=== PATIENT | female | born 1955 | race Caucasian/White ===

== ENCOUNTER 2017-10-07 10:27 | Observation (INO) ==
[2017-10-07] MEDS ORDERED: ONDANSETRON 4 MG/2 ML INJECTION IVP ONE (10:46)
[2017-10-07] MEDS ORDERED: NS 1,000 ML IV ONE (10:46)
[2017-10-07] MEDS ORDERED: SALINE FLUSH 10ml SYRINGE IVF PRN (10:46)
--- OUTSIDE RECORDS SUMMARY | 2017-10-07 10:56 | External Medical Summary | Referral Summary ---
:1955 Author Organization [facility] [place] Address [address] [place] [address] Care Team Providers Name Role Phone No PCP, Pt States Primary Care Physician Encounter VC Date(s): 10/11/16 - 10/12/16 [facility] [place] [address] [place] [address] Discharge Diagnosis: Heart palpitations Discharge Disposition: 01-Home or Self Care Attending Physician: Jere Mirza MD Admitting Physician: Jere Mirza MD Vital Signs Most recent to oldest [Reference Range]: 1 Temperature Oral [35.8-37.3 degC] 36.5 degC (10/11/16 10:07 PM) Peripheral Pulse Rate [60-100 bpm] 63 bpm (10/12/16 4:15 AM) Heart Rate Monitored [60-100 bpm] 88 bpm (10/12/16 3:30 AM) Respiratory Rate [14-20 br/min] 13 br/min *LOW* (10/12/16 4:15 AM) Blood Pressure [90-140/60-90 mmHg] 164/89 mmHg *HI* (10/12/16 3:30 AM) Mean Arterial Pressure, Cuff 105 mmHg (10/12/16 3:30 AM) SpO2 98 % (10/12/16 4:15 AM) Problem List Condition Effective Dates Status Health Status Informant Acute pain(Confirmed) Active Anemia(Confirmed) 2009 Active Arthritis(Confirmed) Active patient Chronic sinusitis(Confirmed) Active Depression(Confirmed) Active Gastric ulcerations(Confirmed) Active Hypertension(Confirmed) Active Morbid obesity(Confirmed) Active patient Ulcer(Confirmed) Active patient Allergies, Adverse Reactions, Alerts Substance Reaction Severity Status diazepam inability to arouse- went to ED Active Medications busPIRone 5 mg oral tablet 5 mg 1 tabs, Oral, TID, # 90 tabs, 0 Refill(s), Indication: anxiety, Pharmacy: [facility] on , 1 tabs Oral TID Start Date: 10/07/16 Status: OrderedCymbalta 60 mg oral delayed release capsule 60 mg 1 caps, Oral, Daily, do not crush or chew, # 30 caps, 0 Refill(s), Indication: depression, Pharmacy: [facility] on , 1 caps Oral Daily, Instr:do not crush or chew Start Date: 10/07/16 Status: OrderedNorvasc 10 mg oral tablet 10 mg 1 tabs, Oral, Daily, # 30 tabs, 0 Refill(s), Indication: HTN, Pharmacy: [facility] on , 1 tabs Oral Daily Start Date: 10/07/16 Status: OrderedtraZODone 150 mg oral tablet 150 mg 1 tabs, Oral, Bedtime (once a day), # 30 tabs, 0 Refill(s), Indication: insomnia, Pharmacy: [facility] on , 1 tabs Oral Bedtime (once a day) Start Date: 10/07/16 Status: Ordered Results Hematology Most recent to oldest [Reference Range]: 1 WBC [4.8-10.8 10*3/uL] 5.8 10*3/uL (10/12/16 1:39 AM) RBC [4.00-5.20] 4.73 (10/12/16 1:39 AM) Hgb [12.0-16.0 gm/dL] 13.3 gm/dL (10/12/16 1:39 AM) Hct [37.0-47.0 %] 41.3 % (10/12/16 1:39 AM) MCV [82.0-99.0 fL] 87.3 fL (10/12/16 1:39 AM) MCH [27.0-32.0 pg] 28.1 pg (10/12/16 1:39 AM) MCHC [32.0-36.0 gm/dL] 32.2 gm/dL (10/12/16 1:39 AM) RDW [11.5-14.5 %] 14.2 % (10/12/16 1:39 AM) Platelet [150-400 10*3/uL] 231 10*3/uL (10/12/16 1:39 AM) MPV [9.4-12.4 fL] 10.4 fL (10/12/16 1:39 AM) Immature Granulocytes [0.0-1.0 %] 0.3 % (10/12/16 1:39 AM) Neutrophils [51-75 %] 62 % (10/12/16 1:39 AM) Lymphocytes [20-46 %] 29 % (10/12/16 1:39 AM) Monocytes [4-11 %] 6 % (10/12/16 1:39 AM) Eosinophils [0-4 %] 4 % (10/12/16 1:39 AM) Basophils [0-2 %] 0 % (10/12/16 1:39 AM) Neutro Absolute [1.90-7.00] 3.55 (10/12/16 1:39 AM) Lymph Absolute [0.80-3.30] 1.65 (10/12/16 1:39 AM) [place] Absolute [0.30-1.00] 0.32 (10/12/16 1:39 AM) Eos Absolute [0.00-0.50] 0.22 (10/12/16 1:39 AM) Baso Absolute [0.00-0.20] 0.01 (10/12/16 1:39 AM) Nucleated RBC Automated [0 /100 WBC] 0.0 /100 WBC (10/12/16 1:39 AM) Differential Scanned Slide (10/12/16 1:39 AM) Chemistry Most recent to oldest [Reference Range]: 1 Sodium Lvl [136-144 mEq/L] 137 mEq/L (10/12/16 2:40 AM) Potassium Lvl [3.6-5.1 mEq/L] 3.2 mEq/L *LOW* (10/12/16 2:40 AM) Chloride [99-109 mEq/L] 104 mEq/L (10/12/16 2:40 AM) CO2 [22-32 mEq/L] 26 mEq/L (10/12/16 2:40 AM) AGAP [3-20 mEq/L] 7 mEq/L (10/12/16 2:40 AM) BUN [4-20 mg/dL] 22 mg/dL *HI* (10/12/16 2:40 AM) Glucose Lvl [70-100 mg/dL] 105 mg/dL *HI* (10/12/16 2:40 AM) Creatinine Lvl [0.44-1.03 mg/dL] 0.78 mg/dL (10/12/16 2:40 AM) eGFR [>60 mL/min] >60 mL/min 1 (10/12/16 2:40 AM) Calcium Lvl [8.6-10.0 mg/dL] 9.0 mg/dL (10/12/16 2:40 AM) Albumin Lvl [3.5-4.8 gm/dL] 3.8 gm/dL (10/12/16 2:40 AM) Total Protein [6.1-7.9 gm/dL] 6.4 gm/dL (10/12/16 2:40 AM) Globulin [1.9-4.3 gm/dL] 2.6 gm/dL (10/12/16 2:40 AM) ALT [14-54 U/L] 21 U/L (10/12/16 2:40 AM) AST [15-41 U/L] 19 U/L (10/12/16 2:40 AM) Alk Phos [26-104 U/L] 67 U/L (10/12/16 2:40 AM) Bili Total [0.2-1.2 mg/dL] 0.9 mg/dL 2 (10/12/16 2:40 AM) Troponin [<0.06 ng/mL] <0.05 ng/mL (10/12/16 1:39 AM) 1Result Comment: Multiply eGFR results by 1.21 for race.2Result Comment: Naproxen, specifically the metabolite O-desmethylnaproxen, may cause spurious elevation in Total Bilirubin levels. Immunizations No data available for this section Procedures Procedure Date Related Diagnosis Body Site History of knee surgery1 2000 Cholecystectomy 1995 Appendectomy 1991 1Right Knee Social History Social History Type Response Smoking Status Never smoker Assessment and Plan No data available for this section
--- OUTSIDE RECORDS SUMMARY | 2017-10-07 10:56 | External Medical Summary | Referral Summary ---
:[address] [facility] Address [address] [place] [address] Care Team Providers Name Role Phone Balta Garcia Primary Care Physician Encounter VC Date(s): 12/06/16 - 12/06/[address] [facility] [address] [place] [address] [place] Discharge Diagnosis: Orthopnea Discharge Diagnosis: HTN (hypertension) Discharge Diagnosis: Leg edema Discharge Diagnosis: Chest pain Discharge Disposition: 01-Home or Self Care Attending Physician: Radha Bullock DO Admitting Physician: Balta Garcia DO Vital Signs Most recent to oldest [Reference Range]: 1 Temperature Oral [35.8-37.3 degC] 36.2 degC (12/06/16 3:29 PM) Peripheral Pulse Rate [60-100 bpm] 68 bpm (12/06/16 3:29 PM) Respiratory Rate [14-20 br/min] 24 br/min *HI* (12/06/16 3:29 PM) Blood Pressure [90-140/60-90 mmHg] 190/108 mmHg *HI* (12/06/16 3:29 PM) Problem List Condition Effective Dates Status Health [...] 90 tabs, 0 Refill(s), Indication: anxiety, Pharmacy: [facility] on , 1 tabs Oral TID Start Date: 10/07/16 Status: OrderedCymbalta 60 mg oral delayed release capsule 60 mg 1 caps, Oral, Daily, do not crush or chew, # 30 caps, 0 Refill(s), Indication: depression, Pharmacy: [facility] on , 1 caps Oral Daily, Instr:do not crush or chew Start Date: 10/07/16 Status: OrderedNorvasc 10 mg oral tablet 10 mg 1 tabs, Oral, Daily, # 30 tabs, 0 Refill(s), Indication: HTN, Pharmacy: [facility] on , 1 tabs Oral Daily Start Date: 10/07/16 Status: OrderedtraZODone 150 mg oral tablet 150 mg 1 tabs, Oral, Bedtime (once a day), # 30 tabs, 0 Refill(s), Indication: insomnia, Pharmacy: [facility] on , 1 tabs Oral Bedtime (once a day) Start Date: 10/07/16 Status: Ordered Results Chemistry Most recent to oldest [Reference Range]: 1 Sodium Lvl [135-144 mEq/L] 145 mEq/L *HI* (12/06/16 4:38 PM) Potassium Lvl [3.5-5.2 mEq/L] 3.9 mEq/L (12/06/16 4:38 PM) Chloride [99-111 mEq/L] 109 mEq/L (12/06/16 4:38 PM) CO2 [22-31 mEq/L] 26 mEq/L (12/06/16 4:38 PM) AGAP [3-20 mEq/L] 10 mEq/L (12/06/16 4:38 PM) BUN [10-20 mg/dL] 15 mg/dL (12/06/16 4:38 PM) Glucose Lvl [70-99 mg/dL] 84 mg/dL (12/06/16 4:38 PM) Creatinine Lvl [0.57-1.11 mg/dL] 0.94 mg/dL (12/06/16 4:38 PM) eGFR [>60 mL/min] >60 mL/min 1 (12/06/16 4:38 PM) Calcium Lvl [8.4-10.2 mg/dL] 9.4 mg/dL (12/06/16 4:38 PM) 1Result Comment: Multiply eGFR results by 1.21 for race. Procedures Procedure Date Related Diagnosis Body Site History of knee surgery1 2000 Cholecystectomy 1995 Appendectomy 1991 1Right Knee Social History Social History Type Response Smoking Status Never smoker
--- OUTSIDE RECORDS SUMMARY | 2017-10-07 10:56 | External Medical Summary ---
:1955 Author Organization [employer] Care Team Providers Name Role Phone Khanh Mercado Provider Role Unavailable Allergies No Known Allergies Problems No Known Problems Medications No Known Medications Results No Known Results Summary Purpose [employer] Submission
--- NOTE | 2017-10-07 11:25 | Emergency Department Report ---
Overdose HPI - General Chief Complaint: Overdose Stated Complaint: OVERDOSE Time Seen by Provider: 10/07/17 10:46 Source: patient, RN notes reviewed, old records reviewed Mode of arrival: ambulatory Limitations: no limitations - History of Present Illness HPI Narrative: 62yo woman is presented to the ER by [facility] for evaluation of an intentional drug overdose. Pt has an extensive psychiatric hx, including numerous prior suicide attempts. Today, pt took 6-7 capsules of 30mg duloxetine ; pt was not prescribed this medication - the capsules belonged to her daughter. Unclear why pt was transported to [facility] today, rather than [facility] or [facility] (where pt has previously been admitted). MD complaint: intentional overdose Onset (ago): hour(s) Timing confirmed by: family member Intent: suicide attempt Associated symptoms: depression Treatments Prior to Arrival: none - Related Data Home Medications Medication Instructions Recorded Confirmed Ibuprofen 800 mg PO PRN 10/07/17 10/07/17 Allergies Allergy/AdvReac Type Severity Reaction Status Date / Time diazepam [From Valium] Allergy Intermediate Sleepiness Verified 10/07/17 10:49 sertraline [From Zoloft] Allergy Intermediate Behavior Verified 10/07/17 10:49 Disturbance Review of Systems Psychiatric: Reports: as per HPI, depression, suicidal thoughts. Denies: anxiety, homicidal thoughts, auditory hallucinations, visual hallucinations [facility] Patient Stated Medical History Hypertension Yes: pt ran out of meds a long time ago Hx Incontinence Yes Depression Yes - Social History Smoking status: Never smoker Physical Exam - Limitations Limitations: no limitations - General General appearance: alert, in no apparent distress, obese (Morbid), other (Pt is unkempt, has urinated on self, has not bathed/cleaned herself in some time) - Normal Exams: Head:: Normocephalic without trauma Eyes:: Pupils are PERRLA w/ EOMI, No scleral icterus, irritation, or foreign bodies noted ENMT:: No facial trauma, nasal exudates, pharyngeal erythema, or exudates are noted Neck:: Full range of motion, without adenopathy Chest/Respirations:: Clear all schaffer, with good airflow, and symmetry bilaterally Cardiovascular:: Regular rate and rhythm, without murmur or gallop, Pulses 2+ all extremities, capillary refill, <2 seconds all extremities Abdomen:: Bowel sounds positive, soft, non-tender, non-distended Lymphatic:: No lymphadenopathy Musculoskeletal:: No tenderness, or deformity noted Integumentary:: No rashes, hives, or bruising noted Neurological:: Patient is alert, and oriented - Psychiatric Psychiatric exam: Present: flat affect, suicidal ideation Course - Consultations Consultation #1: Poison control: Anticipate somnolence, tachycardia, N/V, diaphoresis, confusion , etc. Possible concern for serotonin syndrome, but less likely with one-time ingestion. Supportive care. Watch temp and VSS and mental status. Routine OD work up. If pt is symptomatic, perform serial EKGs. Agitation/restlessness can be controlled with benzos. Observe for 6-12 or until resolution of sx. Time: 11:25 Consultation #2: Hospitalist: Will admit to obs for symptomatic care and observation. Will place in CCU for suicide watch. Time: 13:00 Vital Signs Temperature 97.8 F 10/07/17 10:27 Pulse Rate 78 10/07/17 10:27 Respiratory Rate 24 10/07/17 10:27 Blood Pressure 229/110 H 10/07/17 10:27 Pulse Oximetry 95 10/07/17 10:27 Temperature 97.8 F 10/07/17 10:27 Pulse Rate 78 10/07/17 10:27 Respiratory Rate 24 10/07/17 10:27 Blood Pressure 229/110 H 10/07/17 10:27 Pulse Oximetry 95 10/07/17 10:27 Overdose - MDM Narrative Medical decision making narrative: Pt with intentional overdose of duloxetine. Dosing is not overwhelming, but will need to be observed for 6-12hrs prior to contacting psych for eval/ placement. Hospitalist will admit for observation. - Differential Diagnosis Likely: suicide attempt by multiple drug overdose, poisoning by opiate or related narcotic, drug overdose, acetaminophen overdose - Medical Records Attestation: I reviewed the patient's medical records. - Lab Data Attestation: I reviewed the patient's lab results. Result diagrams: 10/07/17 12:03 10/07/17 12:03 - Radiology Data Attestation: I reviewed the patient's radiology results. CXR: Stable chest. No acute CT pathology. - EKG Data EKG #1 EKG attestation: Yes: I reviewed and interpreted this EKG. EKG shows normal: sinus rhythm, intervals, ST-T waves Lafferty/QRS: left axis deviation Voltage: c/w LVH Disposition Clinical Impression: Suicidal ideation Drug overdose Qualifiers: Encounter type: initial encounter Injury intent: intentional self-harm Qualified Code(s): T50.902A - Poisoning by unspecified drugs, medicaments and biological substances, intentional self-harm, initial encounter Disposition: 02 To OBS [facility] Condition: Stable Time of Disposition: 13:02 - Seen By: physician
[2017-10-07] MEDS ORDERED: LABETALOL 100mg/20ml INJECTION IVP ONE (11:35)
--- NOTE | 2017-10-07 14:09 | History & Physical Report ---
History of Present Illness Date: 10/07/17 Chief complaint: "More suicidal than normal" HPI: Caridad Sunshine is a 62 y/o woman with a hx of depression and multiple prior suicide attempts via overdosing. She was admitted to [facility] in Feb, 2017 for the same reason. She hasn't been able to f/u with psych at [place] and has not been on any antidepressants since then. She states that she always feels suicidal but today when she woke up she felt more suicidal than usual. She denies any recent triggers, though states that her chronic OA pain in her legs, having an unreliable car that breaks down, inability to f/u with providers b/c of transportation challenges have all contributed to her underlying depression. She took about 6 or 7 of her daughter's Cymbalta 30 mg tabs, in an attempt to end her life. She was transported to [facility] ED. VS and labs were stable; she had mild hypokalemia with K of 3.4. She was admitted to the CCU for suicide watch and psych consultation. Review of Systems All systems PM: 10-point ROS was reviewed, no additional remarkable complaints except - Constitutional Constitutional: Absent: chills, fever(s), headache(s) - EENMT Eyes: Absent: change in vision Nose: Absent: allergies Mouth/Throat: Absent: sore throat - Cardiovascular Cardiovascular: Present: chest pain (with anxiety - none recently), edema (both legs - her physician has been planning on getting an echo but she hasn't been able to get it scheduled yet) - Respiratory Respiratory: Absent: cough, dyspnea - Gastrointestinal Gastrointestinal: Present: dyspepsia, other (occasionally has pain from an ulcer ). Absent: abdominal pain, constipation, diarrhea, nausea, vomiting - Genitourinary Genitourinary: Present: urinary incontinence. Absent: dysuria, hematuria - Musculoskeletal Musculoskeletal: Present: other (B/L lower extremity joint pain) - Integumentary/Breasts Integumentary: Absent: rash, wounds - Neurological Neurological: Present: abnormal gait (uses a cane and limited by pain). Absent : confusion, dizziness, frequent falls (did roll out of bed a while ago), headache(s), weakness - Psychiatric Psychiatric: Present: anxiety, depression, suicidal ideation - Endocrine Endocrine: Absent: palpitations - Hematologic/Lymphatic Hematologic/Lymphatic: Absent: easy bleeding, easy bruising - Allergic/Immunologic Allergic/Immunologic: Absent: seasonal rhinorrhea Past Medical History Medical History Updates: OA. Depression. HTN. Ulcer. Morbid obesity Surgical History: Cholecystectomy. Appendectomy. Knee arthroscopy Family History Updates: Depression Family History: As Above - Social History Smoking status: Never smoker Substance use type: does not use Alcohol intake frequency: does not drink Medications Home Medications Medication Instructions Recorded Confirmed Type Ibuprofen 800 mg PO PRN 10/07/17 10/07/17 History Allergies Allergy/AdvReac Type Severity Reaction Status Date / Time diazepam [From Valium] Allergy Intermediate Sleepiness Verified 10/07/17 10:49 sertraline [From Zoloft] Allergy Intermediate Behavior Verified 10/07/17 10:49 Disturbance Exam Vital Signs: Temperature 97.8 F 10/07/17 10:27 Pulse Rate 78 10/07/17 10:27 Respiratory Rate 24 10/07/17 10:27 Blood Pressure 160/84 H 10/07/17 12:00 Pulse Oximetry 95 10/07/17 10:27 Telemetry Rhythm: Sinus Rhythm - Constitutional Present: no acute distress, well nourished, well developed, morbidly obese, disheveled - Routine HEENT Exam Head: Present: normocephalic Eye: Present: PERRL. Absent: conjunctival icterus, scleral injection ENT: Present: mucous membranes moist - Routine Neck Exam Present: supple - Routine Respiratory Exam Present: CTA bilaterally - Routine Cardiovascular Exam Present: RRR, S1, S2 - Routine Abdominal Exam Present: soft, normoactive bowel sounds, non distended, non tender - Routine Extremities Exam Present: edema (1+ BLE) - Routine Skin Exam Present: intact, dry, warm - Routine Neurological Exam Present: alert, oriented X3, CN II-XII intact, moving all extremities, vision grossly intact, hearing grossly intact, normal speech. Absent: motor deficit, facial asymmetry - Routine Psychiatric Exam Present: suicidal ideation, cooperative, depressed Results - Labs CBC & Chem 7: 10/07/17 12:03 10/07/17 12:03 Assessment and Plan (1) Drug overdose Current visit: Yes Status: Acute Assessment and Plan: ASSESSMENT Suicide attempt via ingestion of Cymbalta Hypokalemia, POA Depression HTN - untreated Ulcer Morbid obesity BMI >60 PLAN Admit, observation status to CCU for suicide precautions. Monitor for somnolence , tachycardia, N/V, diaphoresis, confusion; monitor tele. Consult Dr. Suazo. Ativan PRN anxiety. KDur ordered for mild hypokalemia. Untreated HTN - received labetalol in ED. Consider initiating antiHTN vs. f/u with PCP. She reports that her PCP has requested echo but Caridad has not been able to have this scheduled yet. Start Lisinopril 5 mg. UA pending. Consult SW regarding social needs. D/W CCU RN & with Dr. Elliott. DVT Prophylaxis: SCD's Resuscitation Status: Full Code - Physician Narrative Physician: Luiza Elliott MD Narrative: Date: 10/07/17 Time: 1649 I have independently evaluated and examined this patient. 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 We discussed and formulated the assessment and plan as above with additions as below: Mrs. Sunshine is a 62-year-old female with long history of depression which worsened significantly last year after she was evicted from her home. She was hospitalized. [facility] last year after suicide attempt with intentional overdoses. Initial hospitalization was in September when she took < 10 tablets of losartan; she was readmitted in February after taking 5 tablets of Cymbalta. In February she was discharged on bupropion 300 mg daily, BuSpar 10 mg 3 times a day, duloxetine 60 mg daily, trazodone 200 mg at bedtime, in addition to her pain 10 mg daily, furosemide 20 mg daily, and KCl 10 mEq on MWF. She was [facility] [place] the patient reports that transportation problems have included that happening. She describes chronic depression which has worsened progressively; she feel she is a burden to her daughter and reports that she simply couldn't take it anymore and "why live". She reports decreased interest in any activities , isolating herself, and decreased appetite recently. She took approximately 6- 30 mg tablets of Cymbalta today before presenting to the emergency room. [facility] records reviewed; family history also positive for malignancies including maternal grandmother with breast cancer, fathe colon cancer, and a sibling with lung cancer. NAD, flat affect, monotone voice Respirations nonlabored, decreased airflow, anterior breath sounds clear Abdomen soft, nontender +3 edema bilateral lower extremities Assessment noted; chest x-ray reviewed by myself-NAD. EKG also reviewed by myself demonstrating sinus rhythm, probable LVH, and probable precordial lead inversion. Blood pressure was improving at the time of my assessment; continue to monitor. Exam raises question of possible sleep apnea-patient reports she's never been evaluated for sleep apnea or obesity hypoventilation syndrome. Oxygenation will be monitored overnight. Psychiatric evaluation in a.m. anticipated. Patient plans follow-up with Dr. Cain in [place] following hospitalization. Hospital Course Summary Disclaimer: The visit summary below is not to be considered part of the above Progress Note. Hospital Course: 10/07 Admit, observation status to CCU for suicide precautions. Monitor for somnolence , tachycardia, N/V, diaphoresis, confusion; monitor tele. Consult Dr. Suazo. Ativan PRN anxiety. Consult SW regarding social needs. KDur ordered for mild hypokalemia. UA pending. Untreated HTN - received labetalol in ED. Consider initiating antiHTN vs. f/u with PCP. She reports that her PCP has requested echo but Caridad has not been able to have this scheduled yet. Start Lisinopril 5 mg.
[2017-10-07 14:23] VITALS: BMI 60.7
[2017-10-07] MEDS ORDERED: SENNOSIDES 8.6 MG TABLET PO PRN (14:32)
[2017-10-07] MEDS ORDERED: ONDANSETRON 4 MG/2 ML INJECTION IVP PRN (14:32)
[2017-10-07] MEDS ORDERED: SENNA + DOCUSATE TABLET PO PRN (14:32)
[2017-10-07] MEDS: ACETAMINOPHEN 325 MG TABLET PO PRN (15:15)
[2017-10-07] MEDS: LISINOPRIL 5 MG TABLET PO SCH (15:16)
[2017-10-07] MEDS: PRAMIPEXOLE 0.25 MG TABLET PO SCH (21:34)
[2017-10-07] MEDS: ENOXAPARIN 30 MG/0.3 ML INJECTION SQ SCH (21:34)
[2017-10-08] MEDS: ACETAMINOPHEN 325 MG TABLET PO PRN ×4 (03:03→20:20)
[2017-10-08] MEDS: ENOXAPARIN 30 MG/0.3 ML INJECTION SQ SCH ×2 (08:51→20:27)
[2017-10-08] MEDS: LISINOPRIL 5 MG TABLET PO SCH (08:51)
--- NOTE | 2017-10-08 10:34 | XRay Report ---
Indication: OD PROCEDURE: XR chest 1V: Encounter: Initial Comparison: July 06, 2017 Findings: The lungs are stable in appearance without new focal airspace consolidation. There is no pleural effusion or pneumothorax. The heart size, pulmonary vascularity and mediastinal contours are unchanged. IMPRESSION: Stable appearance of the chest without acute cardiopulmonary disease. .
[2017-10-08] MEDS ORDERED: LISINOPRIL 5 MG TABLET PO ONE (13:22)
--- NOTE | 2017-10-08 13:27 | Progress Note ---
- Date 10/08/17 Subjective: Mrs. Sunshine reports having significant anxiety overnight and that her legs are jumpy and painful which is a chronic problem. Leg symptoms improved after a dose of Mirapex with nursing describe restless leg symptoms. The patient reports that she continues to feel very depressed and that life isn't worth living. She reports that she would consider taking pills again but also suggests that she told her daughter she wouldn't. She ate breakfast only because she told her daughter she would. She denies nausea or vomiting, has no heartburn, and denies dysuria or urinary frequency. She complains of some chronic back pain. Overnight nursing reported intermittent desaturations with O2 dropping to 83% associated with episodes of apnea. Objective Vital signs: Temperature 97.5 F 10/08/17 08:00 Pulse Rate 60 10/08/17 12:00 Respiratory Rate 15 10/08/17 10:00 Blood Pressure 158/77 H 10/08/17 10:00 Pulse Oximetry 97 10/08/17 12:05 NAD, alert, flat affect Responds to questions appropriately, regards examiner Respirations nonlabored, good airflow, breath sounds clear Regular rhythm, S1-S2 Abdomen soft, obese, nontender, bowel sounds present +2-3 edema bilateral lower extremities Height/Weight/BMI: Height 1.73 m Weight 185 kg Body Mass Index 60.7 Results - Labs CBC & Chem 7: 10/07/17 12:03 10/08/17 04:36 Labs: UA with 5-10 WBC, +4 bacteria, trace leukocyte esterase, positive nitrate Microbiology Results: Microbiology 10/07/17 17:28 Urine, Voided (Cc/notcc) Urine Culture - Preliminary Early growth Assessment and Plan (1) Drug overdose Current visit: Yes Status: Acute Assessment and Plan: ASSESSMENT Intentional overdose Suicide attempt via ingestion of Cymbalta Hypokalemia, POA-resolved Depression (recurrent, major) with anxiety HTN - untreated Ulcer - hx Morbid obesity BMI >60 Asymptomatic pyuria Probable obstructive sleep apnea Restless legs PLAN Patient seen by Dr. Suazo this a.m., to be screened for [facility] and possible transfer there. Continue suicide precautions, protective environment pending psychiatric admission. Hydroxyzine or Ativan PRN anxiety. Potassium improved following supplementation. Blood pressure remains elevated although improved from presentation. Increase lisinopril to 10 mg daily. Nursing observed episodes of apnea overnight with corresponding hypoxia. Overnight oximetry tonight. Discussed potential ANGELICA with patient and treatment options; she is aware that a formal study will be needed for diagnosis as an outpatient before definitive treatment can be initiated. Continue low-dose Mirapex for restless legs. Do not believe treatment is needed for pyuria given absence of symptoms. DVT Prophylaxis: Lovenox Resuscitation Status: Full Code - Physician Narrative Narrative: Date: 10/08/17 Time: 1324 Hospital Course Summary Disclaimer: The visit summary below is not to be considered part of the above Progress Note. Hospital Course: 10/07/17 Admit, observation status to CCU for suicide precautions. Monitor for somnolence , tachycardia, N/V, diaphoresis, confusion; monitor tele. Consult Dr. Suazo. Ativan PRN anxiety. Consult SW regarding social needs. KDur ordered for mild hypokalemia. UA pending. Untreated HTN - received labetalol in ED. Consider initiating antiHTN vs. f/u with PCP. She reports that her PCP has requested echo but Caridad has not been able to have this scheduled yet. Start Lisinopril 5 mg. 10/08/[address] Suazo this a.m., to be screened for [facility] and possible transfer there. Continue suicide precautions, protective environment pending psychiatric admission. Hydroxyzine or Ativan PRN anxiety. Potassium improved following supplementation. Blood pressure remains elevated although improved from presentation. Increase lisinopril to 10 mg daily. Nursing observed episodes of apnea overnight with corresponding hypoxia. Overnight oximetry tonight. Discussed potential ANGELICA with patient and treatment options; she is aware that a formal study will be needed for diagnosis as an outpatient before definitive treatment can be initiated. Continue low-dose Mirapex for restless legs. Do not believe treatment is needed for pyuria given absence of symptoms.
--- NOTE | 2017-10-08 13:31 | Neuropsychiatric Consult ---
[facility] HPI Date: 10/08/17 Requesting Physician: Luiza Elliott Reason for Consultation: OD Start Time: 11:00 Stop Time: 11:30 History of Present Illness: HPI: 62 Y/O CF with a long hx of depression and S/I admitted after OD on approximately 7 Cymbalta 60mg in a SA. On face to face the pt states she has been dealing with numerous stressors. She states she took the OD with intent to kill herself and now wishes she was successful. She continues to report S/I and does not feel safe going home. STRESSORS: Has chronic pain. Poor mobility. Feels lonely and has difficulty leaving the house due to not being able to walk well. Mother 2 years ago. Car is broken and is not able to get to psychiatrist appointments. PSYCH ROS: Pt reports feeling depressed with low interest and motivation, decreased energy, anhedonia, feelings of hopelessness and worthlessness. Has S/ I. Denies anxiety, tamika or psychosis. PAST PSYCH: Has atleast 5 OD attempts and hospitalizations. The first was at age 39. The last was in Feb 2017 at [facility]. She states she has been seen at [facility] in the past and did very well. She states she was most recently on Abilify , Trazodone, and Buspar and feels it worked well although she has been off for some time. SUBSTANCE ABUSE: Denies SOCIAL HX: Denies hx of abuse. Dropped out in 10th grade and has GED. Is on disability for mental illness. Currently lives with daughter RAHEEMH Patient Stated Medical History Hypertension Yes: pt ran out of meds a long time ago Hx Incontinence Yes Other Musculoskeletal Yes: RA Depression Yes Medical History Updates: OA. Depression. HTN. Ulcer. Morbid obesity Surgical History: Cholecystectomy. Appendectomy. Knee arthroscopy Family History: Family History (Last Updated 10/07/17 @ 16:46 by Luiza Elliott MD) Unknown Cancer of lung Maternal Grandmother Cancer of breast Father Cancer of colon Family History Updates: Depression - Social History Smoking status: Never smoker Substance use type: does not use Alcohol intake frequency: does not drink Review of Systems - EENMT Nose: Absent: allergies Mouth/Throat: Absent: sore throat Mental Status Exam Vitals: Last Vital Signs Temp 97.5 F 10/08/17 08:00 Pulse 60 10/08/17 12:00 Resp 15 10/08/17 10:00 BP 158/77 H 10/08/17 10:00 Pulse Ox 97 10/08/17 12:05 Height: 1.73 m Weight: 185 kg - Mental Status Exam Muscle Strength/Tone: Normal Dressing: Casual Grooming: Good Attitude: Cooperative Motor Activity: Retardation Eye Contact: Good Speech: Slowed Volume: Soft Rhythm: Appropriate Rhythm Orientation: Oriented X4 Mood: Depressed Affect: Sad Rate of Thoughts: Appropriate Rate Thought Organization: Organized Associations: Intact Abstract Reasoning: Intact, able to abstract Thought Content: Hopelessness, Worthlessness Perception/Psychotic: Perception Normal Language: Naming Intact Fund of Knowledge: Appropriate Memory: Grossly Intact Suicidal Ideation: Intermittent Homicidal Ideation: None Insight: Poor Judgement: Poor Impulse Control: Poor - Laboratory Result Diagrams: 10/07/17 12:03 10/08/17 04:36 Laboratory Results - last 24 hr 10/07/17 10/08/17 17:28 04:36 Turbidity < 20 Sodium 145 Potassium 4.3 D Chloride 106 Carbon Dioxide 30 Anion Gap 9 BUN 19.0 H Creatinine 0.8 GFR Calculation 73 BUN/Creatinine Ratio 24 Glucose 93 Calculated Osmolality 281 H Calcium 8.2 L D Icterus Index < 2 Specimen Hemolysis 41 H Ur Collection Type Urine, void-cc/notcc Urine Color Yellow Urine Clarity Sl cloudy Urine pH 6.0 Ur Specific [place] 1.025 Urine Protein Negative Urine Glucose (UA) Negative Urine Ketones Negative Urine Occult Blood Negative Urine Nitrate Positive A Urine Bilirubin Negative Urine Urobilinogen 1.0 Ur Leukocyte Esterase Trace A Urine RBC None seen Urine WBC 5-10 H Ur Squamous Epith Cells 5-10 Urine Bacteria 4+ H Ur Culture Indicated? Cult reflexed &setup Assessment and Plan (1) Major depressive disorder with current active episode Qualifiers: Major depression recurrence: recurrent Major depression episode severity: severe Current visit: Yes Status: Acute Continue medical management. Pt will need psych admission when stable. Pt is in agreement with plan. Do not let the pt leave AMA
[2017-10-08] MEDS ORDERED: FALL RISK - PHARMACY CONSULT MC ONE (15:41)
[2017-10-08] MEDS: PRAMIPEXOLE 0.25 MG TABLET PO SCH (20:27)
[2017-10-09] MEDS: ACETAMINOPHEN 325 MG TABLET PO PRN ×3 (01:41→15:15)
[2017-10-09] MEDS ORDERED: TRAMADOL 50 MG TABLET PO PRN (04:15)
[2017-10-09] MEDS ORDERED: HYDRALAZINE 20 MG/ML INJECTION IVP PRN (04:16)
[2017-10-09] MEDS: ENOXAPARIN 30 MG/0.3 ML INJECTION SQ SCH (08:05)
[2017-10-09] MEDS ORDERED: LISINOPRIL 10 MG TABLET PO SCH (09:00)
[2017-10-09] MEDS ORDERED: IBUPROFEN 600 MG TABLET PO PRN (10:47)
--- NOTE | 2017-10-09 13:45 | Discharge Summary ---
Discharge Information Date of admission: 10/07/17 13:02 Anticipated date of discharge: 10/09/17 Attending Physician: Luiza Elliott MD Primary care physician: Jeanine Garcia APRN Consults: Consulting Provider: Jagdish Suazo Reason For Exam: suicide attempt - Discharge Diagnosis (1) Drug overdose Status: Acute Intentional overdose Suicide attempt via ingestion of Cymbalta Hypokalemia, POA-resolved Depression (recurrent, major) with anxiety HTN - untreated Ulcer - hx Morbid obesity BMI >60 Asymptomatic pyuria Probable obstructive sleep apnea Restless leg syndrome - Procedures Procedures: Overnight oximetry on 10/08-10/09: Study was started on 1 L oxygen with subsequent conversion to room air from 11 PM until 0010 a.m. after which she was on 2 L supplemental oxygen due to recurrent desaturation. Oxygen saturation was reported to be < 89% for 41 minutes with lowest saturation recorded 72%. [place]oth pattern was described throughout the night and a total of 65 desaturations were recorded. - Laboratory Labs: On admission CBC and routine chemistries were unremarkable except potassium 3.4. Urine drug screen was negative; salicylates, acetaminophen, and alcohol were undetectable. Urinalysis had 5-10 WBCs, +4 bacteria, trace leukocyte esterase, and positive nitrites 10/08/17 04:36 - Microbiology Microbiology 10/07/17 17:28 Urine, Voided (Cc/notcc) Urine Culture - Preliminary > 100,000 cfu/ml Escherichia coli; sensitivities pending - Radiology Radiology: Chest x-ray on 10/07/17 revealed no acute cardiopulmonary disease. History of Present Illness HPI: Caridad Sunshine is a 62 y/o woman with a hx of depression and multiple prior suicide attempts via overdosing. She was admitted to [facility] in Feb, 2017 for the same reason. She hasn't been able to f/u with psych at [place] and has not been on any antidepressants since then. She states that she always feels suicidal but today when she woke up she felt more suicidal than usual. She denies any recent triggers, though states that her chronic OA pain in her legs, having an unreliable car that breaks down, inability to f/u with providers b/c of transportation challenges have all contributed to her underlying depression. She took about 6 or 7 of her daughter's Cymbalta 30 mg tabs, in an attempt to end her life. She was transported to [facility]. VS and labs were stable; she had mild hypokalemia with K of 3.4. She was admitted to the CCU for suicide watch and psych consultation. Objective Vital signs: Temperature 97.8 F 10/09/17 12:00 Pulse Rate 74 10/09/17 13:15 Respiratory Rate 23 10/09/17 13:15 Blood Pressure 150/71 H 10/09/17 13:00 Pulse Oximetry 94-RA 10/09/17 13:15 NAD, alert Respirations nonlabored, diminished airflow, breath sounds clear anteriorly Regular rhythm, S1-S2 Abdomen soft, obese, nontender +3 edema bilateral lower extremities Rhythm: Normal Sinus Rhythm Height/Weight/BMI: Height 1.73 m Weight 185 kg Body Mass Index 60.7 Hospital Course This is a general summary of the patient's hospital course. For more details refer to the complete medical record. Hospital course: 10/07/17 Admit, observation status to CCU for suicide precautions. Monitor for somnolence , tachycardia, N/V, diaphoresis, confusion; monitor tele. Consult Dr. Suazo. Ativan PRN anxiety. Consult SW regarding social needs. KDur ordered for mild hypokalemia. UA pending. Untreated HTN - received labetalol in ED. Consider initiating antiHTN vs. f/u with PCP. She reports that her PCP has requested echo but [facility] has not been able to have this scheduled yet. Start Lisinopril 5 mg. 10/08/[address] Suazo this a.m., to be screened for [facility] and possible transfer there. Continue suicide precautions, protective environment pending psychiatric admission. Hydroxyzine or Ativan PRN anxiety. Potassium improved following supplementation. Blood pressure remains elevated although improved from presentation. Increase lisinopril to 10 mg daily. Nursing observed episodes of apnea overnight with corresponding hypoxia. Overnight oximetry tonight. Discussed potential ANGELICA with patient and treatment options; she is aware that a formal study will be needed for diagnosis as an outpatient before definitive treatment can be initiated. Continue low-dose Mirapex for restless legs. Do not believe treatment is needed for pyuria given absence of symptoms. 10/09/17 Mrs. Sunshine complains of generalized pain involving multiple joints and her whole body. Pain is so bad today that she "even took a narcotic". Medication review reveals that tramadol was prescribed overnight after Tylenol was ineffective for pain control. Chronically she uses ibuprofen at home. Patient otherwise reports impaired sleep and that she is forcing herself to eat. Affect is unchanged when she reports ongoing depression which is "really bad". Patient's insurance was not compatible with [facility] or [facility]. She's been accepted for transfer to the [facility] unit at [facility]. Patient is medically stable for transfer there at this time. Blood pressures remain modestly elevated and lisinopril dose will be increased to 20 mg daily. Results of overnight oximetry were reviewed with Mrs. Sunshine and she is aware that at some point in the future she should consider formal sleep study as sleep apnea is likely. Follow-up with primary care physician at discharge from inpatient psychiatry is also strongly recommended. Time spent with patient: discharge greater than 30 minutes Resuscitation Status: Full Code Discharge Plan - Discharge Disposition Discharge Date: 10/09/17 Disposition: 65 To Psych Hosp/Unit *Condition: Stable Reason For Visit (Visit label in EMR): suicide attempt with medication OD - Discharge Medications *Discharge Medications: New Acetaminophen [Tylenol] 325 - 650 mg PO Q5H PRN tab PRN Reason: Discomfort HydrOXYzine [Atarax] 25 mg PO Q4H PRN tab PRN Reason: Anxiety Ibuprofen [Motrin] 600 mg PO Q6H PRN tab PRN Reason: Pain Lisinopril [Prinivil] 20 mg PO DAILY #30 tab Pramipexole [Mirapex] 0.125 mg PO HS tab Senna + Docusate [Senna Plus Tablet] 1 tab PO BID PRN tab PRN Reason: Constipation Enoxaparin Sodium [Lovenox] 30 mg SQ BID syringe No Action Ibuprofen 800 mg PO PRN - Discharge Packet/Instructions *Diet: Regular *Activity: as tolerate *Pain Management/Treatment: see medication list *Wound Care: not applicable *Expected Signs/Symptoms: Myalgias/arthralgias, swelling in your legs, anxiety- will be addressed further during stay in inpatient psychiatry *Notify Physician if: You feel you may harm herself *During Business Hours Contact: Dr. Cain's office if you follow-up with him after hospital stay. Need to establish with a PCP to manage your blood pressure and for further evaluation of possible sleep apnea. *After Business Hours Contact: Contact emergency room if needed *Pending Lab/Results: No Pending Lab - Referrals/Follow Up - Patient Handouts Patient Handouts: Sleep Apnea ([facility]) - Dismissal Complete Discharge Instructions are:: Complete Physician Narrative - Narrative Attestation Narrative: Date: 10/09/17 Time: 2947
[2017-10-09 15:58] VITALS: TEMP 97.9
[2017-10-09 19:06] VITALS: BP 139/62
[2017-10-09 19:49] VITALS: PULSE 72; RESP 30; O2SAT 92
== END 2017-10-09 19:42 ==
LOC: ED 10:27 → EDHOLD 10:27 → CCU 13:40
PROVIDERS: ADMIT Internal Medicine; ATTEND Internal Medicine